=== PATIENT | female | born 1970 | race Caucasian/White ===

== ENCOUNTER 2022-02-14 00:03 | Observation (INO) ==
[2022-02-14 00:50] LABS: Basophils % 0.4 %; Eosinophils # 0.2 K/mcL (0.0-0.6); Eosinophils % 2.1 %; Hematocrit 32.7 % (35.3-44.9); Immature Granulocytes % 0.4 % (0-4); Lymphocytes # 1.3 K/mcL (0.6-4.6); Lymphocytes % 17.6 %; Mean Corpuscular HGB Conc 33.6 g/dL (31.6-35.5); Mean Corpuscular Hemoglobin 30.4 pg (28.0-33.3); Mean Corpuscular Volume 90.3 fL (83.0-100.0); Mean Platelet Volume 10.4 fL (9.4-12.4); Monocytes % 12.6 %; Platelet Count 220 K/mcL (140-400); Red Blood Count 3.62 M/mcL (3.82-4.97); Red Cell Distribution Width 13.1 % (11.5-14.5); Segmented Neutrophils % 66.9 %; White Blood Count 7.5 K/mcL (4.3-11.1)
[2022-02-14 01:04] LABS: BUN/Creatinine Ratio 11 (6-26); Blood Urea Nitrogen 13 mg/dL (6-20); Calcium 8.7 mg/dL (8.6-10.3); Carbon Dioxide 24 mEq/L (23-29); Chloride 104 mEq/L (98-107); Glucose 102 mg/dL (70-105); Osmolality,Calculated 286 (280-300); Potassium 3.2 mEq/L (3.5-5.1); Sodium 138 mEq/L (136-145)
[2022-02-14 01:05] LABS: Troponin I < 0.03 ng/mL (< 0.04)
[2022-02-14 01:19] LABS: Alanine Aminotransferase 10 Units/L (7-52); Albumin 3.8 g/dL (3.5-5.7); Albumin/Globulin Ratio 1.6 (1.1-2.2); Alkaline Phosphatase 89 Units/L (34-104); Aspartate Amino Transferase 13 Units/L (13-39); Bilirubin,Direct 0.1 mg/dL (0.0-0.2); Bilirubin,Indirect 0.4 mg/dL (0.0-1.0); Bilirubin,Total 0.5 mg/dL (0.3-1.0); Globulin 2.4 g/dL (2.4-3.5); Lipase 20 Units/L (11-82); Total Protein 6.2 g/dL (6.4-8.9)
[2022-02-14 02:11] LABS: Bacteria,Urine Few per hpf (None-Few); Bilirubin,Urine Negative (Negative); Blood,Urine Negative (Negative); Clarity,Urine Clear (Clear); Color,Urine Colorless (Yellow); Glucose,Urine (UA) Normal (Normal); Ketones,Urine Negative (Negative); Leukocyte Esterase,Urine Moderate (Negative); Mucus,Urine Few per lpf (None-Few); Nitrite,Urine Positive (Negative); Protein,Urine Negative (Neg-Trace); Urobilinogen,Urine Normal (Normal); WBC,Urine 15-30 per hpf (0-3)
[2022-02-14] MEDS ORDERED: Furosemide 20 MG/2 ML VIAL IVP ONE (02:26)
[2022-02-14] MEDS ORDERED: Naloxone 0.4 MG/ML INJ IVP PRN (02:58)
[2022-02-14] MEDS ORDERED: Ondansetron 4 MG/2 ML VIAL IVP PRN (02:58)
[2022-02-14] MEDS ORDERED: cefTRIAXone 1,000 MG in 0.9 % Sodium Chloride Mini Bag 100 ML IVPB SCH (03:04)
[2022-02-14] MEDS ORDERED: diazePAM 10 MG TABLET PO PRN (05:27)
[2022-02-14] MEDS: cefTRIAXone 1,000 MG in 0.9 % Sodium Chloride Mini Bag 100 ML IVPB SCH (05:47)
[2022-02-14 06:29] LABS: INR 1.2; Prothrombin Time 13.1 Seconds (9.4-12.1)
[2022-02-14] MEDS: Acetaminophen 325 MG TABLET PO PRN ×3 (06:29→22:56)
[2022-02-14] MEDS ORDERED: Regadenoson 0.4 MG/5 ML SYRINGE IVP ONE ×2 (06:30→09:47)
[2022-02-14 06:36] LABS: Magnesium 1.5 mg/dL (1.6-2.6)
[2022-02-14 06:48] LABS: Thyroid Stimulating Hormone 3.464 mcIU/mL (0.340-5.600)
[2022-02-14] MEDS ORDERED: Metoclopramide 10 MG/2 ML VIAL IVP ONE (08:40)
[2022-02-14] MEDS: ARIPiprazole 2 MG TABLET PO SCH (11:42)
[2022-02-14] MEDS: Cholecalciferol (D-3) 1,000 UNIT (25MCG) TABLET PO SCH (11:42)
[2022-02-14] MEDS: Aspirin Enteric Coated 81 MG Tablet PO SCH (11:42)
[2022-02-14] MEDS: lamoTRIgine 100 MG TABLET PO SCH ×2 (11:43→20:58)
[2022-02-14] MEDS: amLODIPine 5 MG TABLET PO SCH (11:43)
[2022-02-14] MEDS: lisinopriL 10 MG TABLET PO SCH (13:14)
[2022-02-14] MEDS: Isosorbide MONOnitrate (24 HR) 30 MG TAB.ER.24H PO SCH (15:50)
[2022-02-14] MEDS: FLUoxetine 20 MG CAPSULE PO SCH (20:58)
[2022-02-15 03:59] VITALS: TEMP 98
[2022-02-15] MEDS: Acetaminophen 325 MG TABLET PO PRN (05:09)
[2022-02-15 06:29] LABS: Basophils % 0.4 %; Eosinophils % 0.2 %; Hematocrit 36.7 % (35.3-44.9); Hemoglobin 12.2 g/dL (11.5-15.4); Immature Granulocytes % 0.6 % (0-4); Lymphocytes # 1.2 K/mcL (0.6-4.6); Mean Corpuscular HGB Conc 33.2 g/dL (31.6-35.5); Mean Corpuscular Hemoglobin 30.4 pg (28.0-33.3); Mean Corpuscular Volume 91.5 fL (83.0-100.0); Mean Platelet Volume 9.8 fL (9.4-12.4); Monocytes # 1.1 K/mcL (0.0-1.3); Monocytes % 13.1 %; Neutrophils # 5.7 K/mcL (1.6-8.9); Platelet Count 289 K/mcL (140-400); Red Blood Count 4.01 M/mcL (3.82-4.97); Red Cell Distribution Width 12.9 % (11.5-14.5); Segmented Neutrophils % 70.7 %; White Blood Count 8.1 K/mcL (4.3-11.1)
[2022-02-15 06:48] LABS: Calcium 9.2 mg/dL (8.6-10.3); Potassium 2.7 mEq/L (3.5-5.1)
[2022-02-15 07:52] VITALS: BP 165/95; PULSE 70; O2SAT 98
[2022-02-15] MEDS: FLUoxetine 20 MG CAPSULE PO SCH (08:38)
[2022-02-15] MEDS: amLODIPine 5 MG TABLET PO SCH (08:38)
[2022-02-15] MEDS: ARIPiprazole 2 MG TABLET PO SCH (08:38)
[2022-02-15] MEDS: Aspirin Enteric Coated 81 MG Tablet PO SCH (08:38)
[2022-02-15] MEDS: lisinopriL 10 MG TABLET PO SCH (08:38)
[2022-02-15] MEDS: lamoTRIgine 100 MG TABLET PO SCH (08:39)
[2022-02-15] MEDS: Cholecalciferol (D-3) 1,000 UNIT (25MCG) TABLET PO SCH (08:39)
[2022-02-15] MEDS: Isosorbide MONOnitrate (24 HR) 30 MG TAB.ER.24H PO SCH (08:39)
[2022-02-15] MEDS: cefTRIAXone 1,000 MG in 0.9 % Sodium Chloride Mini Bag 100 ML IVPB SCH (08:40)
[2022-02-15] MEDS ORDERED: Cyanocobalamin (B-12) 1,000 MCG TABLET PO SCH (09:00)
== END 2022-02-15 10:39 | disposition home or self-care (01) ==
LOC: EMEROOARM 00:03 → 3NENU 00:03
PROVIDERS: ADMIT Student in an Organized Health Care Education/Training Program; ATTEND Student in an Organized Health Care Education/Training Program